=== PATIENT | female | born 1995 | race Caucasian/White ===

== ENCOUNTER 2017-12-31 15:56 | Observation (INO) ==
[2017-12-31 17:20] LABS: Amphetamine Screen,Urine Negative ng/mL (Cutoff=1000); Barbiturate Screen,Urine Negative ng/mL (Cutoff=200); Benzodiazepines Screen,Urine Negative ng/mL (Cutoff=200); Cannabinoid Screen,Urine Negative ng/mL (Cutoff = 50); Cocaine Screen,Urine Negative ng/mL (Cutoff= 300); Opiate Screen,Urine Negative ng/mL (Cutoff=300); Phencyclidine Screen,Urine Negative ng/mL (Cutoff=25)
--- NOTE | 2017-12-31 18:01 | OB/GYN Progress Note ---
Date of Encounter: 12/31/17 Time of Encounter: 17:58 - Assessment and Plan (1) 39 weeks gestation of Current Visit: Yes Status: Acute (2) Irregular uterine contractions Current Visit: Yes Status: Acute Discharge home. Follow up in the office as scheduled. Labor precautions given. Subjective - Subjective Interval history: Patient presents with complaints of contractions every 12-15 minutes since last night. She reports this morning she has experienced some leakage of fluid today. She endorses good movement and denies vaginal bleeding, headache, and vision changes. Reports last intercourse was last night. Antepartum ROS: new complaints, loss of fluid, movement normal, contractions Objective - Vital Signs Vital Signs: Intake and Output 12/31/17 12/31/17 12/31/17 07:59 15:59 23:59 Other: Weight 79.5 kg Patient Weight 12/31/17 23:59 Weight 79.5 kg - Exam FHR: auscultation normal, category 1 Auscultation: bilateral: normal Abdomen: Present: normal appearance, soft, gravid Uterus: Present: normal Cervical dilation: 2 Cervix effacement: 80 station: -2 Comments: Fern negative and nitrazine negative.
== END 2017-12-31 18:07 | disposition home or self-care (01) ==
LOC: 1NENULAB
PROVIDERS: ADMIT Obstetrics & Gynecology; ATTEND Obstetrics & Gynecology

== ENCOUNTER 2018-01-08 06:59 | Inpatient (IN) ==
[2018-01-08] MEDS ORDERED: *HR* Nalbuphine 20 MG/ML AMPUL IVP PRN (07:18)
[2018-01-08] MEDS ORDERED: Epidural Premix (fent/bupiv) 110 ML EP ONE ×2 (08:39→15:07)
[2018-01-08] MEDS ORDERED: Ringers Solution, Lactated 1,000 ML ONE ×2 (08:41→11:02)
[2018-01-08] MEDS ORDERED: Epidural Premix (fent/bupiv) 110 ML EP SCH (09:00)
--- NOTE | 2018-01-08 09:00 | Anesthesia Evaluation PreOp ---
Date of Encounter: 01/08/18 Time of Encounter: 08:58 - Past History Planned Operation: vaginal del, G1 spont. Cardiac History: Denies any Significant Hx Pulmonary History: Denies Any Significant HX LAPEL STITCHER History: Denies Any Significant HX Other Medical History: Denies Any Significant HX Anesthesia History: No Prior Anesthetic Complications, Past Anesthesia Alcohol Use: none Drug use: none Medications and Allergies Vit/Iron Fumarate/FA [ Tablet] 1 each PO DAILY 12/31/17 [ History] 3 Allergy/AdvReac Type Severity Reaction Status Date / Time No Known Allergies Allergy Verified 01/08/18 07:30 Anesthesia Exam - HEENT Pupil (Motor): Pupils equal Mallampati: II Teeth: Normal Oral Opening: Greater than 3 - LAPEL STITCHER LOC: Oriented LAPEL STITCHER Motor: Normal RUE, Normal LUE, Normal RLE, Normal LLE, Normal Face LAPEL STITCHER Sensory: Normal: RUE, LUE, RLE, LLE, Face - Cardiac Rhythm: Regular Murmur: None - Pulmonary Breath Sounds: bilateral Clear Respiratory Effort: Symmetrical Anesthesia Assess/Plan ASA Score: 2 Modified [place] Scale for Level of Consciousness: Cooperative, oriented, and tranquil Anesthetic Plan: General, Regional Monitoring Plan: Standard Monitors Recovery Plan: PACU
[2018-01-08 09:18] LABS: Basophils # 0.1 K/mcL (0.0-0.2); Basophils % 0.6 %; Eosinophils # 0.3 K/mcL (0.0-0.6); Eosinophils % 2.1 %; Hematocrit 40.5 % (35.3-44.9); Hemoglobin 13.9 g/dL (11.5-15.4); Immature Granulocytes % 2.7 % (0-4); Lymphocytes # 2.4 K/mcL (0.6-4.6); Lymphocytes % 19.9 %; Mean Corpuscular HGB Conc 34.3 g/dL (31.6-35.5); Mean Corpuscular Hemoglobin 28.4 pg (28.0-33.3); Mean Corpuscular Volume 82.7 fL (83.0-100.0); Mean Platelet Volume 13.9 fL (9.4-12.4); Monocytes # 0.8 K/mcL (0.0-1.3); Monocytes % 6.8 %; Neutrophils # 8.2 K/mcL (1.6-8.9); Platelet Count 120 K/mcL (140-400); Red Cell Distribution Width 14.2 % (11.5-14.5); Segmented Neutrophils % 67.9 %
--- NOTE | 2018-01-08 09:47 | Anesthesia Procedures ---
Date of Encounter: 01/08/18 Time of Encounter: 09:27 Procedures: Anesthesia - Epidural/Spinal Patient ID/Chart reviewed: Yes Patient examined: Yes OB Eval: Gestational age: term OB Eval: : 1 OB Eval: Contractions: Non-stressed pattern Consent Obtained: Yes Site Prep: Aseptic Technique, Sterile prep and drape, 0.5% Chlorhexidine/Alcohol Patient position: upright Local Anesthetic: Lidocaine 1% Amount of Local Anesthetic used: 2 Touhy Needle Gauge: 18 Touhy Needle Depth (cm): 8 Catheter Depth at Skin (cm): 12 Test Dose (1.5% Lido + Epi): Volume given (mls): 3 Test Dose Result: Negative Loading Dose: Other: 10ml from solution Loading Dose Administered: Thru Catheter Infusion Med: 0.125% Bupivacaine w/ 2 mcg/ml Fentanyl Infusion Rate (mls/hr): [address]: Tegaderm, Tape Interspace Used: L3-L4 Loss of Resistance (MARGAUX): Yes (saline) Blood: No CSF: No Paresthesia: No Procedure: vss though procedure, FHR stable per RN's
[2018-01-08] MEDS ORDERED: Terbutaline 1 MG/ML VIAL SQ ONE ×3 (09:57→12:40)
[2018-01-08 10:06] LABS: Amphetamine Screen,Urine Negative ng/mL (Cutoff=1000); Barbiturate Screen,Urine Negative ng/mL (Cutoff=200); Benzodiazepines Screen,Urine Negative ng/mL (Cutoff=200); Cannabinoid Screen,Urine Negative ng/mL (Cutoff = 50); Cocaine Screen,Urine Negative ng/mL (Cutoff= 300); Opiate Screen,Urine Negative ng/mL (Cutoff=300); Phencyclidine Screen,Urine Negative ng/mL (Cutoff=25)
[2018-01-08] MEDS ORDERED: Famotidine 20 MG/2 ML VIAL IVP PRN (11:28)
[2018-01-08] MEDS ORDERED: Naloxone 0.4 MG/ML INJ IVP PRN (11:28)
[2018-01-08] MEDS ORDERED: Ondansetron 4 MG/2 ML VIAL IVP PRN (11:28)
[2018-01-08] MEDS ORDERED: Ringers Solution, Lactated 1,000 ML IVC SCH (11:30)
--- NOTE | 2018-01-08 11:36 | OB/GYN History & Physical ---
Date of Encounter: 01/08/18 Time of Encounter: 11:31 Assessment and Plan (1) 40 weeks gestation of Current visit: Yes Status: Acute admitted for delivery History of Present Illness Chief complaint: labor HPI: Ms. Harris is a 22 year old female at 40w2d presents to labor and delivery with complaints or contractions that started at 0500 and were getting stronger. Patient reports +FM. Denies LOF or VB. Patient was 3cm when she arrived to labor and delivery and progressed quickly to 4.5 cm. Patient at that time was requesting epidural. Blood type: A+ Rubella: Immune Hep B: Nonreactive RPR: Nonreactive GBS: Negative Past Med Surg Social Fam HX - Past Medical History Source: patient Medical history: no medical history Psychiatric history: no psych history - Past Surgical History Surgical History: no surgical history - Social History Smoking Status: Never smoker Smokeless Tobacco Status: No Alcohol use: none Drug use: none - Family History Maternal Grandmother Living Status: Hx Family Cardiac Disorders: No Hx Family Respiratory Disorders: No Hx Family Cancer: No Hx Family GI Disorders: No Hx Family Genitourinary Disorders: No Hx Family Endocrine Disorder: No Hx Family Musculoskeletal Disorders: No Hx Family Neuromuscular Disorders: No Hx Family Neurologic Disorders: No Hx Family HEENT Disorders: No Hx Family Autoimmune Disorders: No Hx Family Reproductive Disorders: No Hx Family Psychosocial Disorders: No Hx Family Medical Disorders: No Obstetrical History - Pregnancies : 1 Para: 0 Term: 0 : 0 Ab's: 0 Livin Medications and Allergies Vit/Iron Fumarate/FA [ Tablet] 1 each PO DAILY 12/31/17 [ History] 3 Allergy/AdvReac Type Severity Reaction Status Date / Time No Known Allergies Allergy Verified 01/08/18 07:30 Review of System OB - Constitutional Constitutional ROS IM: no chills, no fever(s), no headache(s) - Cardiovascular Cardiovascular: no chest pain, no edema, no palpitations, no syncope - Respiratory Respiratory: no cough - Gastrointestinal Gastrointestinal: no constipation, no diarrhea, no heartburn, no nausea, no vomiting - Genitourinary Genitourinary: no abnormal vaginal bleeding, no dysuria, no flank pain, no urinary incontinence, no vaginal discharge, no vaginal odor, no vaginal pruritis Exam - Constitutional Constitutional: well developed, well nourished, no acute distress, average body habitus - HEENT HEENT: Normocephaly, Mucus Membranes Moist - Neck Neck exam: full ROM, supple - Lungs Respiratory exam: CTAB - Cardiovascular Cardiovascular exam: RRR, +S1, +S2 - Abdomen Abdomen: Present: bowel sounds normal, gravid, non tender - Extremities Extremities exam: full ROM, normal inspection Deep Tendon Reflex Grade: 2+ Normal - Cervix Dilation: 4 Effacement: 90 Station: -1 - Uterus Uterus exam: Present: normal size, normal contour - Anus/Rectum Anus/Rectum: Present: normal perianal skin (FHR 145 bpm moderate amount of variability +15x15 accels variables noted. Contractions 1.5-2 min apart) Results Result Diagrams: 01/08/18 07:34 Abnormal lab results WBC 12.0 K/mcL (4.3-11.1) H 01/08/18 07:34 MCV 82.7 fL (83.0-100.0) L 01/08/18 07:34 Plt Count 120 K/mcL (140-400) L 01/08/18 07:34 MPV 13.9 fL (9.4-12.4) H 01/08/18 07:34 All other labs normal. - VTE Reasons for not Prescribing Prophylaxis: Treatment not Indicated - Low risk for VTE
[2018-01-08] MEDS ORDERED: Lidocaine/EPI 1:200k 2% PF 20 ML VIAL ONE ×2 (12:04→15:33)
--- NOTE | 2018-01-08 12:42 | Anesthesia Progress Note ---
Date of Encounter: 01/08/18 Time of Encounter: 12:16 Anesthesia Note - Note Note: 01/08/18 12:39 called to BS, c/o lower back pain, on peanut ball right lateral, ETOH to skin t4 level bilateral, bilateral quad weakness, bolus with 3ml of lido with epi, and 2ml of 0.5% bup isobaric plain. patient verbal understands back pain comes and goes may not be helped with epidural. will monitor.
[2018-01-08] MEDS ORDERED: Oxytocin 20 units/ LR 1000 mL 20 UNIT/1,000 ML BAG IVC ONE (16:09)
--- NOTE | 2018-01-08 17:51 | OB/GYN Procedure Note ---
Delivery - Delivery Date: 01/08/18 Provider: Landy Johnson (Jay, PGY2) Intrapartum events: none Delivery induction: AROM Delivery monitor: internal FHT, internal uterine Anesthesia: epidural Estimated Blood Loss: 200 - Infant (s) A Infant Delivery Date: 01/08/18 Delivery Time: 17:19 Presentation: vertex Position: NAKIA Route of delivery: Gender: Male Viability: Viable Pounds: 8 Ounces: 5 Weight Gram: 3770 kg at 1 minute: 8 at 5 mins: 9 Shoulder Dystocia: not encountered Specimens collected: cord blood Placenta: spontaneous, uterine exploration Cord: 3 umbilical vessels - Repair Episiotomy: none Laceration Description: Periurethral (right side, repaired with 4-0 monocryl) - Complications Delivery complications: none - Disposition Mom disposition: stable in LDR [place] disposition: stable in LDR - Comments Comments: Called to LDR to check EFM tracing. SVE patient complete and +1 station. Patient placed in stirrups and prepped for delivery. Under maternal effort patient delivered a viable male infant over an intact perinuem. No nuchal, no shoulder dystocia noted. Terminal meconium noted. Infant was placed on maternal abdomen. Cord was clamped and cut after pulsation ceased. Infant remained on maternal abdomen. Cord blood was collected. Placenta delivered spontaneously and intact. A right side periurethral laceration was repaired with 4-0 monocryl. Patient tolerated well. Uterus was explored, no retained products noted. Pericare provided. All counts correct. Mother and stable in LDR for 2 hour recovery.
[2018-01-08] MEDS ORDERED: *HR* HYDROcodone/Acet 5/325 mg TABLET PO PRN (22:03)
[2018-01-08] MEDS ORDERED: Oxytocin 20 units/ LR 1000 mL 20 UNIT/1,000 ML BAG IVC SCH (22:03)
[2018-01-08] MEDS ORDERED: Measles/Mumps/Rubella Vacc 0.5 ML VIAL SQ PRN (22:03)
[2018-01-08] MEDS ORDERED: Acetaminophen 325 MG TABLET PO PRN (22:03)
[2018-01-09] MEDS: Ibuprofen 600 MG TABLET PO PRN ×2 (03:24→09:12)
[2018-01-09 08:35] VITALS: BP 132/92
[2018-01-09] MEDS ORDERED: Prenatal Vit/FA 1 EACH TABLET PO SCH (09:00)
[2018-01-09] MEDS ORDERED: Benzocaine/Menthol 56 GM AEROSOL SPRAY TP PRN (13:53)
--- NOTE | 2018-01-09 13:54 | Discharge Summary ---
Date of Encounter: 01/09/18 Time of Encounter: 13:51 - Discharge Diagnosis (1) Normal vaginal delivery Priority: Primary Status: Acute Comments: Pain controlled with PO meds Continue dermoplast and witch rhett pads VSS Tolerating regular diet Voiding independently Passing flatus, but no BM yet Lochia light Discharge home - Discharge Medications Prescriptions: Ibuprofen [Motrin] 600 mg PO Q6HR PRN #30 tablet PRN Reason: Cramping Docusate [Colace] 100 mg PO BID #30 capsule Home Medications: Vit/Iron Fumarate/FA [ Tablet] 1 each PO DAILY 12/31/17 [ History] Benzocaine/Menthol [place] [Dermoplast [place]] 1 appl TP QID PRN aerosol 01/09/18 [Rx] Docusate [Colace] 100 mg PO BID #30 capsule 01/09/18 [Rx] Ibuprofen [Motrin] 600 mg PO Q6HR PRN #30 tablet 01/09/18 [Rx] Allergies/Adverse Reactions: 3 Allergy/AdvReac Type Severity Reaction Status Date / Time No Known Allergies Allergy Verified 01/08/18 07:30 Data Procedures and tests throughout hospitalization: Laboratory Tests 01/08/18 01/08/18 07:34 09:47 WBC 12.0 H RBC 4.90 Hgb 13.9 Hct 40.5 MCV 82.7 L MCH 28.4 MCHC 34.3 RDW 14.2 Plt Count 120 L MPV 13.9 H Immature Gran % 2.7 Seg Neutrophils % 67.9 Lymphocytes % 19.9 Monocytes % 6.8 Eosinophils % 2.1 Basophils % 0.6 Neutrophils # 8.2 Lymphocytes # 2.4 Monocytes # 0.8 Eosinophils # 0.3 Basophils # 0.1 Urine Opiates Screen Negative Ur Barbiturates Screen Negative Ur Phencyclidine Scrn Negative Ur Amphetamines Screen Negative U Benzodiazepines Scrn Negative Urine Cocaine Screen Negative U Marijuana (THC) Screen Negative Date of admission: 01/08/18 06:59 Primary care physician: PCP NONE Consults: 01/08/18 22:03 Consult to Butter Printer [CONS] Routine Comment: Vaginal delivery, consult needed Discharging clinician: Melly Resendez Anticipated date of discharge: 01/09/18 - Patient Status Disposition: Home, Self-Care Condition: Good Functional capacity at discharge: independent ambulation Overall status at discharge: patient is progressing back to baseline - Discharge Instructions Follow Up With: NONE,PCP [Primary Care Provider] - Melly Resendez [Advanced Practice Nurse] - - Diet and Activity Activity: increase activity as tolerated Diet: regular diet Hospital Course Reason for admission: IUP at term Delivery: Episiotomy: none Laceration: other (periurethral) complications: none Discharge diagnosis: IUP at term delivered baby: male Time Attestation: Total time spent providing and/or coordinating discharge services: Time Spent: Less than 30 minutes Exam - Constitutional Vitals: Temp Pulse Resp BP Pulse Ox 98.5 F 93 22 132/92 99 01/09/18 08:33 01/09/18 08:33 01/09/18 08:33 01/09/18 08:33 01/09/18 08:33 General appearance IM: A&O X 3 - Respiratory Respiratory exam: Present: CTAB - Cardiovascular Cardiovascular exam IM: Present: RRR, +S1, +S2 - GI/Abdominal GI/Abdominal exam IM: normal bowel sounds - Rectal Rectal exam: deferred - Uterine Tone: Firm Uterus Position: At Umbilicus, Midline - Extremities Exam Extremities exam IM: Present: normal inspection, radial pulses palpable and symmetrical - Neurological Exam Neurological exam: alert, oriented X3 - Psychiatric Additional comments: Pt feeling well today. No history of depression. S/sx of PPD discussed.
== END 2018-01-09 16:59 | disposition home or self-care (01) | DRG 775 ==
LOC: 1NENULAB → OBSVTOIN 06:59 → 1NENUOBS 21:06
PROVIDERS: ADMIT Advanced Practice Midwife; ATTEND Advanced Practice Midwife